=== PATIENT | female | born 1955 | race Caucasian/White ===

== ENCOUNTER 2024-03-16 12:40 | Inpatient (IN) | payer OTHER ==
--- OUTSIDE RECORDS SUMMARY | 2024-03-16 12:42 | XMS REPORT | Continuity of Care Document ---
Author Name Unknown Address [address] [facility] [address] [facility] Address [address] [facility] [address] [place] [address] Care Team Providers Care Explosive Specialist Name Role Phone PCP, PATIENT DOES NOT HAVE A Primary Care Physic abigail Unavailable ABELARDO CURRIE Attending Clinician Unavailable ABELARDO CURRIE Attending Clinician Unavailable Abelardo Currie PA-C Attending Clinician [phone] LEVI MACIEL Attending Clinician UnavailLEVI Milner Attending Clinician UnavailLevi Milner MD Attending Clinician [phone] Levi Maciel MD Attending Clinician [phone] Campaigns, Generic Provider Attending Clinician Unavailable Shweta Pugh Attending Clinician [phone] SHWETA ODELL Attending Clinician Unavaildamion langston Unknown, Attending Attending Clinician Unavailab le Payers Payer Name Policy Type Policy Number Effective Date Expirati on Date Source [facility] [id number] 2023 00:00:00 [facility] [id number] 2023 00:00:00 2024 00:00:00 Problems Condition Name Condition Details Condition Category Status Onset Date Resolution Date Last Treatment Date Treating Clinician Comments Source GERD (gastroeso phageal reflux disease) GERD (gastroeso phageal reflux disease) Disease Active 02-05 00:00: 00 [facility] Seizure disorder Seizure disorder Disease Active 02-05 00:00: 00 [facility] Osteoporos is Osteoporos is Disease Active 02-05 00:00: 00 [facility] Allergies, Adverse Reactions, Alerts Allergy Name Allergy Type Status Severity Reaction(s) Onset Date Inactive Date Treating Clinician Comments Source NO KNOWN ALLERGIE S Drug Class Active [facility] Social History Social Habit Start Date Stop Date Quantity Comments Source [facility] function 2024-02-05 00:00:00 2024-02-05 00:00:00 [facility] Sex assigned at 1955 00:00:00 1955 00:00:00 [facility] Smoking Status Start Date Stop Date Source Tobacco smoking consumption unknown [facility] Medications Ordered Medication Name Filled Medication Name Start Date Stop Date Current Medication? Ordering Clinician Indication Dosage Frequency Signature (SIG) Comments Components Source diclofenac 75 mg EC tablet 02-25 00:00: 00 Yes [id number] 75mg Take 1 tablet by mouth in the morning and 1 tablet in the evening. Take with meals. [facility] acyclovir 400 mg tablet 02-02 00:00: 00 Yes [facility] esomeprazol e 40 mg capsule 8 00:00: 00 Yes [facility] traMADoL 50 mg tablet 01-01 00:00: 00 01-07 04:59 :00 Yes [id number] 50mg Take 1 tablet by mouth every 6 (six) hours for 5 days. Indication s: acute pain [facility] trifluridin e 1 % ophthalmic drops - 00:00: 00 Yes [facility] atropine 1 % ophthalmic drops 12-26 00:00: 00 Yes [facility] famotidine 40 mg tablet 18 00:00: 00 Yes 40mg Take 1 tablet by mouth at bedtime. [facility] Vital Signs Vital Name Observation Time Observation Value Comments Rose acosta Body height 2024-02-26 18:40:00 154.9 cm [facility] Body weight 2024-02-26 18:40:00 74.208 kg [facility] BMI 2024-02-26 18:40:00 30.91 kg/m2 [facility] Body weight 2024-02-05 19:27:00 75.751 kg [facility] 2024-02-05 19:27:00 31.55 kg/m2 [facility] Body height 2024-01-16 14:24:00 154.9 cm [facility] Body weight 2024-01-16 14:24:00 75.433 kg [facility] BMI 2024-01-16 14:24:00 31.42 kg/m2 [facility] Systolic blood pressure 2024-01-01 20:04:00 147 mm[Hg] [facility] Diastolic blood pressure 2024-01-01 20:04:00 95 mm[Hg] [facility] Heart rate 2024-01-01 20:04:00 82 /min [facility] Respiratory rate 2024-01-01 20:04:00 18 /min [facility] Body height 2024-01-01 20:04:00 154.9 cm [facility] Body weight 2024-01-01 20:04:00 77.52 kg [facility] BMI 2024-01-01 20:04:00 32.29 kg/m2 [facility] Oxygen saturation in Arterial blood by Pulse oximetry 2024-01-01 20:04:00 97 /min [facility] Procedures Procedure Date / Time Performed Performing Clinicia n Source XR HAND <3 VW RIGHT 2024-02-26 18:50:14 Abelardo Currie [facility] XR WRIST 3+ VW RIGHT 2024-01-01 20:31:00 Arjun Odell [facility] Encounters Start Date/Time End Date/Time Encounter Type Admission Type Attending Clinicians Care Facility Care Department Encounter ID Source 2024-02-26 13:43:10 2024-02-26 23:59:00 Outpatient R ABELARDO CURRIE [place] [id number] [facility] 2024-02-26 13:43:10 2024-02-26 23:59:00 [facility] 1.2.840.114 350.1.13.10 4.2.7.2.686 [id number] [facility] 2024-02-26 14:30:00 2024-02-26 14:30:00 [facility] 1.2.840.114 350.1.13.10 4.2.7.2.686 [id number] [facility] 2024-02-13 00:00:00 2024-02-17 18:39:19 [facility] 1.2.840.114 350.1.13.10 4.2.7.2.686 [id number] [facility] 2024-02-05 15:04:32 2024-02-05 23:59:00 Hospital Encounter Abelardo Currie [facility] 1.2.840.114 350.1.13.10 4.2.7.2.686 [id number] [facility] 2024-02-05 15:00:00 2024-02-05 15:23:08 [facility] 1.2.840.114 350.1.13.10 4.2.7.2.686 [id number] [facility] 2024-02-05 14:35:22 2024-02-05 15:03:00 Outpatient R ABELARDO CURRIE, [place] [id number] [facility] 2024-02-05 14:35:22 2024-02-05 15:03:00 Hospital Encounter Abelardo Cur[facility] 1.2.840.114 350.1.13.10 4.2.7.2.686 [id number] [facility] 2024-01-29 00:00:00 2024-02-04 09:35:39 Telephone [facility]Levi [facility] 1.2.840.114 350.1.13.10 4.2.7.2.686 [id number] [facility] 2024-01-16 10:02:26 2024-01-16 23:59:00 Hospital Encounter Levi Maciel [facility]ur[facility] 1.2.840.114 350.1.13.10 4.2.7.2.686 [id number] [facility] 2024-01-16 09:45:00 2024-01-16 10:24:06 Outpatient R LEVI MACIEL [place] [id number] [facility] 2024-01-16 09:45:00 2024-01-16 10:24:06 Office Visit Amanda Levi Shi [facility] 1.2.840.114 350.1.13.10 4.2.7.2.686 [id number] [facility] 2024-01-08 16:00:00 2024-01-08 16:00:00 Outpatient R LEVI MACIEL [place] [id number] [facility] 2024-01-08 00:00:00 2024-01-08 11:10:01 Letter (Out) Campaigns, Generic Provider [facility] 1.2.840.114 350.1.13.10 4.2.7.2.686 [id number] [facility] 2024-01-01 15:18:44 2024-01-01 23:59:00 Hospital Encounter Shweta Odell [facility] 1.2.840.114 350.1.13.10 4.2.7.2.686 [id number] [facility] 2024-01-01 00:00:00 2024-01-01 17:48:37 Telephone Shweta Odell [facility] 1.2.840.114 350.1.13.10 4.2.7.2.686 [id number] [facility] 2024-01-01 14:40:00 2024-01-01 16:24:36 Outpatient R SHWETA ODELL [place] [id number] [facility] 2024-01-01 14:40:00 2024-01-01 16:24:36 Urgent Care Shweta Odell Unknown, Attending [facility] 1.2.840.114 350.1.13.10 4.2.7.2.686 [id number] [facility] Results Test Description Test Time Test Comments Results Resul t Comments Source XR HAND <3 VW RIGHT 9 14:31:54 EXAM: XR HAND <3 VW RIGHT HISTORY: Right wrist pain Room 4 COMPARISON: 02/05/2024 FINDINGS: Progressive callus formation is seen about the small finger metacarpal basefracture. Osteoarthritic changes are seen at the radiocarpal,carpomet acarpal and interphalangeal joints. Osteopenia is noted. [facility] XR WRIST 3+ VW RIGHT 2023-12-23 0 21:06:41 ORDERING PHYSICIAN: SHWETA ODELL. HISTORY: right wrist pain- fall TECHNIQUE: 3 views COMPARISON: None. FINDINGS: There is a intra-articular fracture through the base of the fifthmetacarpal. The smaller 11 mm fragment remains in situ, and contains thelateral half of the articular surface. The larger fragment contains themedial half of the articular surface and the remainder of the metacarpalincluding the head, neck, and shaft. It is displaced medially by less than2 mm. No other fracture is present. Joint spaces are otherwise maintained.There is wrist soft tissue swelling. [facility] Notes Date/Time Note Provider Source 2024-02-19 15:23:37 Spke with Patient and relayed the information per PONCHO Anthony. Patient voiced understanding. Carmel Henry RN [facility] 2024-02-19 13:46:14 Called Patient, No answer, Left message to call back. 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 After being immobilized, it is likely her joints will be stiff and having some pain with movement. Can apply ice/heat as tolerated and continue taking ibuprofen PRN. Will reevaluate at next appt. [facility] 2024-02-19 10:44:24 Spoke with patient she reports shooting pain at the pinky through the wrist and also in the middle finger to the wrist. She has been working on making a fits to stretch the area and feels sharp pains in the middle/inside of the wrist. She states that she messages it and feel sharp pain on the top of her hand near the injury. States that is not a sharp pain. Rates the pain 6/10. Please review and advise. Next office visit 02/26/24 Carmel Henry RN [facility] 2024-02-19 08:31:29 Called Patient, No answer, Left message to call back. Carmel Henry RN [facility] 2024-02-17 18:39:27 Pt can start coming out of brace and moving her hand/wrist. Should still avoid lifting/twisting/pulling movements. [facility] 2024-02-13 15:42:00 Patient would like to speak to clinical staff regarding her fracture she is wanting to know if it is safe to to take off the brace and if she is able to make fist or be able to maneuver her hand. She is also wanting to know if she needs to keep the brace on at all times or if is okay to take it off. Patient still has pain and swelling. Sundeep Gonzales [facility] 2024-02-04 09:34:49 Called patient but no answer so LVM letting her know she needs to schedule a follow up appointment. Diane Delgado 02/04/2024 9:35 AM Diane Delgado [facility] 2024-02-04 08:10:37 Pt needs to be seen in clinic for repeat imaging and evaluation. T PA-PHYSICIAN MANAGER BABY MIDLEVEL PROVIDER [facility] 2024-01-30 11:33:21 Routing encounter to provider to review and address. At her [place] she was told to RTC in 3 weeks. Diane Delgado 01/30/2024 11:33 AM [facility] 2024-01-29 18:01:43 Delfina Mendez is a 68 year old female Pt calling She hurt her hand 5 wks. Ago She is wondering is it normal to have so much pain. Pain has shooting from broken finger through wrist. Fingers are still swollen and hurt very bad. Pt can't bend finger into a fist Please call pt T [facility] 2024-01-01 17:48:00 Spoke with patient that she had a fracture and she states that she will come tomorrow 01/02/2024 to splinted. T [facility] 2024-01-01 17:05:05 Delfina Mendez is a 68 year old female Pt is calling requesting to go over x-ray results from her urgent care appt today, 01/01/24. Please contact pt at [phone]. T [facility] 2024-01-01 14:40:00 Addended by: SARAH ERWIN on: 01/02/2024 09:59 AM Modules accepted: Orders T [facility]
--- NOTE | 2024-03-16 14:01 | RAD REPORT ---
EXAM: CT brain without contrast HISTORY: Syncope, trauma, pain [facility] Bed Name: 6 COMPARISON: None TECHNIQUE: Multiple contiguous axial images were obtained and a CT of the brain without contrast. Sag ittal and coronal reformats were performed. FINDINGS:No evidence of hydrocephalus, intracranial hemorrhage, or extra-axial fluid collection. Mild brain atrophy with mild periventricular and deep white matter chronic microvascular ischemic ch anges present. No evidence of midline shift or areas of brain edema. The calvarium is intact. The visualized paranasal sinuses and mastoid air cells are essentially clear . IMPRESSION: No evidence of acute intracranial abnormality. EXAM: CT of the cervical spine without contrast HISTORY: Neck demi, injury [facility] Bed Name: 6 COMPARISON: None TECHNIQUE: Multiple contiguous axial images were obtained in a CT of the cervical spine without contr ast. Sagittal and coronal reformats were performed. FINDINGS: The vertebral bodies demonstrate normal height. No evidence of acute fracture or subluxatio n.. Mild mid and lower cervical degenerative changes are present. Mild degenerative anterolisthesis of C3 on 4. No prevertebral soft tissue swelling is seen. The posterior facets are well aligned. Normal alignment of the skull base with the cervical spine is seen. The lung apices are unremarkable. IMPRESSION: No evidence of acute osseous abnormality of the cervical spine.
[2024-03-16 14:07] LABS: Absolute Eosinophils 0.2 K/uL (0-0.5); Absolute Lymphocytes (CBC) 0.8 K/uL (0.7-4.9); Absolute Monocytes 0.7 K/uL (0.1-1.3); Absolute Neutrophil 7.1 K/uL (1.8-8.0); Basophils % 0.2 % (0-1.3); Eosinophils % 2.1 % (0-4.4); Hemoglobin 12.9 g/dL (12.0-15.0); Lymphocytes % 8.5 % (15.3-44.8); MCH 29.2 pg (27.0-35.0); MCHC 32.3 g/dL (32.0-36.0); MCV 90.5 fL (80-100); MPV 7.9 fL (7.6-11.3); Neutrophils % 81.2 % (41.7-73.7); Platelets 259 thou/uL (152-406); RBC Red Blood Cell Count 4.42 M/uL (3.86-4.86); Red Cell Distribution Width 14.7 % (12.1-15.2)
[2024-03-16 14:25] LABS: ALT/SGPT 28 U/L (13-56); AST/SGOT 16 U/L (15-37); Albumin 3.2 g/dL (3.4-5.0); Alkaline Phosphatase 65 U/L (45-117); Anion Gap 14.6 mEq/L (5.0-15.0); BUN Blood Urea Nitrogen 20 mg/dL (7-18); Bicarbonate 21 mEq/L (21-32); Bilirubin Direct < 0.2 mg/dL (0-0.2); Bilirubin Indirect, Calculated 0.2 mg/dL (0.2-0.8); Bilirubin Total 0.4 mg/dL (0.2-1.0); Globulin 3.2 g/dL (2.3-3.5); Glomerular Filtration Rate 24 ml/min (=/>90); Glucose Level 114 mg/dL (74-106); Potassium 3.6 mEq/L (3.5-5.1); Protein, Total 6.4 g/dL (6.4-8.2); Sodium Level 140 mEq/L (136-145); Troponin High Sensitivity 3.4 pg/mL (<58.9)
[2024-03-16] MEDS ORDERED: NA CHLORIDE 0.9% 2,000 ML ONE (14:51)
--- NOTE | 2024-03-16 15:45 | EDPHYS ---
Physician Documentation [facility] Name: Delfina Mendez Age: 68 yrs Sex: Female : 1955 Arrival Date: 03/16/2024 Time: 12:40 Bed 6 Private MD: ED Physician Dwight Choudhury HPI: 03/16 13:24 This 68 yrs old Female presents to ER via EMS with complaints of syncope/possible sb4 seizure. 13:24 Patient states that she was at the [employer] store in the checkout line and started to sb4 feel poorly. She states the last thing she remembers is asking the staff if she looked pale in which they told her yes. Bystanders report that she then fell to the ground and hit her head and started "shaking "briefly. EMS arrived and she had returned to baseline, c-collar was applied due to some neck pain. 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 She is not currently on any medication for this. Additionally, she does report a history of vertigo and migraines. Historical: - Allergies: 12:47 No Known Allergies; bp - Immunization history:: Adult Immunizations up to date. - Infectious Disease History:: Denies. - Social history:: Smoking status: Patient denies any tobacco usage or history of. ROS: 13:24 Constitutional: Negative for fever, chills, and weight loss, sb4 13:24 Neck: Positive for pain with movement, pain at rest, 13:24 Neuro: Positive for seizure activity, syncope, 13:24 All other systems are negative, Exam: 13:27 Constitutional: This is a well developed, well nourished patient who is awake, alert, sb4 and in no acute distress. Head/Face: Normocephalic, atraumatic. Eyes: Extra-ocular motions intact. Periorbital areas with no swelling, redness, or edema. ENT: Mucous membranes moist. Cardiovascular: Regular rate and rhythm with a normal S1 and S2. Respiratory: Lungs have equal breath sounds bilaterally, clear to auscultation and percussion. No rales, rhonchi or wheezes noted. No increased work of breathing, no retractions or nasal flaring. Abdomen/GI: Soft, non-tender, no distension. Skin: Warm, dry with normal turgor. Normal color with no rashes, no lesions, and no evidence of cellulitis. MS/ Extremity: Pulses equal, no cyanosis. Neurovascular intact. Full, normal range of motion. Neuro: Awake and alert, GCS 15, oriented to person, place, time, and situation. Motor strength 5/5 in all extremities. Sensory grossly intact. 13:27 Neck: C-spine: C-collar placed CONVERSION MAN, Vital Signs: 12:46 BP 106 / 73; Pulse 76; Resp 16; Temp 98; Pulse Ox 95% ; bp 14:00 BP 120 / 99; Pulse 62; Resp 16; Pulse Ox 97% ; bp 15:00 BP 123 / 98; Pulse 57; Resp 15; Pulse Ox 96% ; bp 16:57 BP 132 / 75; Pulse 59; Resp 16; Pulse Ox 98% ; bp 17:16 BP 158 / 84; Pulse 58; Resp 16; Pulse Ox 99% on R/A; cm10 MDM: 12:45 Patient medically screened. [facility] 15:44 ECG was reviewed by the Attending Physician. Data reviewed: vital signs, nurses notes, [facility] EMS record, lab test result(s), EKG, radiologic studies, and as a result, I will admit patient. Consideration of Admission/Observation Patient was admitted/placed on observation. Counseling: I had a detailed discussion with the patient and/or guardian regarding the historical points, exam findings, and any diagnostic results supporting the discharge/admit diagnosis, lab results, radiology results, the need for further work-up and treatment in the hospital. 03/16 12:46 Order name: Basic Metabolic Panel; Complete Time: 14: [facility] 03/16 12:46 Order name: CBC with Diff; Complete Time: 14:08 [facility] 03/16 12:46 Order name: Hepatic Function; Complete Time: 14:26 [facility] 03/16 12:46 Order name: Magnesium; Complete Time: 14: [facility] 03/16 12:46 Order name: Troponin High Sensitivity; Complete Time: 14: [facility] 03/16 15:45 Order name: UAM sb 03/16 16:45 Order name: T4 Free [facility] 03/16 16:45 Order name: Thyroid Stimulating Hormone [facility] 03/16 16:45 Order name: Basic Metabolic Panel [facility] 03/16 16:45 Order name: Basic Metabolic Panel [facility] 03/16 16:45 Order name: CBC with Automated Diff [facility] 03/16 16:45 Order name: CBC with Automated Diff [facility] 03/16 16:45 Order name: Lipid Profile [facility] 03/16 16:45 Order name: Lipid Profile [facility] 03/16 16:45 Order name: Magnesium [facility] 03/16 16:45 Order name: Magnesium [facility] 03/16 16:45 Order name: Phosphorus [facility] 03/16 16:45 Order name: Phosphorus [facility] 03/16 16:45 Order name: Troponin High Sensitivity [facility] 03/16 16:45 Order name: Troponin High Sensitivity [facility] 03/16 16:45 Order name: Troponin High Sensitivity [facility] 03/16 12:46 Order name: CT Head C Spine; Complete Time: 14:02 sb4 03/16 16:45 Order name: EEG Request [facility] 03/16 16:45 Order name: EEG Request [facility] 03/16 16:45 Order name: CONS Physician Consult [facility] 03/16 12:46 Order name: Cardiac monitoring; Complete Time: 12:58 sb4 03/16 12:46 Order name: EKG - Nurse/Tech; Complete Time: 12:58 sb4 03/16 12:46 Order name: IV Saline Lock; Complete Time: 12:58 sb4 03/16 12:46 Order name: Labs collected and sent; Complete Time: 12:58 sb4 03/16 12:46 Order name: O2 Per Protocol; Complete Time: 12:48 sb4 03/16 12:46 Order name: O2 Sat Monitoring; Complete Time: 12:48 sb4 03/16 14:02 Order name: Misc. Order: remove c collar; Complete Time: 14:02 sb4 EC:12 Rate is 71 beats/min. Rhythm is regular, Normal Sinus Rhythm. Left axis deviation sb4 noted. OR interval is normal at 162 msec. QRS interval is normal at 72 msec. QT interval is normal at 440 msec. No Q waves. T waves are Normal. No ST changes noted. Clinical impression: No evidence of ischemia. Interpreted by me. Reviewed by me. Administered Medications: 14:45 Drug: NS 0.9% IV 1000 ml IV at 1 bolus Per protocol; 1000 mL bolus Route: IV; Rate: 1 bp bolus; Site: left forearm; 16:58 Follow up: IV Status: Completed infusion; IV Intake: 1000ml bp Disposition Summary: 03/16/24 15:45 Hospitalization Ordered Notes: Hospitalization Status: Observation sb4 Provider: Balta Sanford4 Location: Telemetry/MedSurg (observation) sb4 Condition: Fair sb4 Problem: new sb4 Symptoms: are unchanged sb4 Bed/Room Type: Standard sb4 Room Assignment: 215(03/16/24 16:55) bd Diagnosis - Syncope sb4 - Acute kidney failure, unspecified sb4 Discharge Instructions: - Discharge Summary Sheet sb4 - Seizure, Adult, Hgtw-[id number]-Ifch sb4 - Syncope, [id number]-[id number] sb4 Forms: - Medication Reconciliation Form sb4 - SBAR form sb4 - Leadership Thank You Letter sb4 Addendum: 03/19/2024 11:12 I was immediately available for consultation during this patient's visit. I did not e c2 personally see the patient or discuss the patient with the BENI. . Signatures: Dispatcher [employer] EDKS Cate Kaye Brian, TREVON RN Maria Eugenia Prado PA-C PA-C sb4 Dwight Choudhury MD MD ec2 Corrections: (The following items were deleted from the chart) 03/16 13:03 12:47 Head Brain Wo Cont+CT.RAD.BRZ ordered. EDKS EDKS 16:55 15:45 sb4 bd
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
--- NOTE | 2024-03-16 15:51 | P.HP ---
Certification for Inpatient Patient admitted to: Observation With expected LOS: <2 Midnights Practitioner: I am a practitioner with admitting privileges, knowledge of patient current condition, hospital course, and medical plan of care. Services: Services provided to patient in accordance with Admission requirements found in Title 42 Section 412.3 of the Code of Federal Regulations Patient History Date of Service: 03/16/24 Reason for admission: CVA vs seizure History of Present Illness: Delfina Mendez is a 68 year old female with Pmhx of heart palpitations who presents to the ED with chief complaint of seizure like activity today while at the [employer] store. She reports having these episodes twice a year with the most recent one in December (2023) and previous to that in May (2022). She states she feels an aura of increased ear pressure, feeling like she is going down into a tunnel and then becomes dizzy before falling. She states today's episode was the first one witnessed, a nurse in the line at the [employer] store placed her on her side and had reported to her foam coming from her mouth and minimal shaking. Otherwise she is usually found on the floor by a family member. She reports seeing Dr. Ferrara for suspected absence seizure's but is not on medications at this time. On evaluation, she is alert and oriented, remembers some of the event today, can recall her previous episodes, NIHSS 0. Of note, she is adopted and is not familiar with her paternal family's history of seizures. Initial vitals BP 106 / 73, Pulse 76, Resp 16, Temp 98, Pulse Ox 95% Laboratory evaluation with BUN/creatinine 20/2.21, GFR 24, serum glucose 114 CT head "FINDINGS:No evidence of hydrocephalus, intracranial hemorrhage, or extra-axial fluid collection. Mild brain atrophy with mild periventricular and deep white matter chronic microvascular ischemic changes present. No evidence of midline shift or areas of brain edema. The calvarium is intact. The visualized paranasal sinuses and mastoid air cells are essentially clear. IMPRESSION: No evidence of acute intracranial abnormality." CT cervical spine "FINDINGS: The vertebral bodies demonstrate normal height. No evidence of acute fracture or subluxation.. Mild mid and lower cervical degenerative changes are present. Mild degenerative anterolisthesis." Delfina will be admitted to hospitalist service for further evaluation and treatment. Dr. Ferrara consulted. - Past Medical/Surgical History -: Palpitations Past Surgical History: Patient denies surgical history - Social History Smoking Status: Never smoker Alcohol use: No CD- Drugs: No Review of Systems Neurological: Other (dizziness) Physical Examination - Physical Exam General: Alert, In no apparent distress, Oriented x3 HEENT: Atraumatic, Normocephalic, PERRLA Neck: Supple, 2+ carotid pulse no bruit, JVD not distended Respiratory: Clear to auscultation bilaterally, Normal air movement Cardiovascular: No edema, Normal pulses, Regular rate/rhythm, Normal S1 S2 Capillary refill: <2 Seconds Gastrointestinal: Normal bowel sounds, Hypoactive, Soft and benign, No tenderness Musculoskeletal: No clubbing Integumentary: No rashes Neurological: Normal speech, Normal tone, Other (NIHSS 0) - Studies Laboratory Data (last 24 hrs) 03/16/24 03/16/24 12:58 12:58 WBC 8.80 Hgb 12.9 Hct 40.0 Plt Count 259 Sodium 140 Potassium 3.6 BUN 20 H Creatinine 2.21 H Glucose 114 H Magnesium 2.0 Total Bilirubin 0.4 AST 16 ALT 28 Alkaline Phosphatase 65 Assessment and Plan - Plan Assessment and plan Acute CVA vs seizure -CT head "FINDINGS:No evidence of hydrocephalus, intracranial hemorrhage, or extra-axial fluid collection. Mild brain atrophy with mild periventricular and deep white matter chronic microvascular ischemic changes present. No evidence of midline shift or areas of brain edema. The calvarium is intact. The visualized paranasal sinuses and mastoid air cells are essentially clear. IMPRESSION: No evidence of acute intracranial abnormality." -CT cervical spine "FINDINGS: The vertebral bodies demonstrate normal height. No evidence of acute fracture or subluxation.. Mild mid and lower cervical degenerative changes are present. Mild degenerative anterolisthesis." -Dr. Ferrara consulted -EEG in the a.m. -Continuous telemetry -No neurological deficits -MRI brain performed on Saturday (03/11)- reports "Moderate signal within predominantly deep white matter bilaterally probably ischemic changes secondary to small vessel disease. A demyelinating process is considered less likely. Follow-up MRI of the brain in 3 months may be helpful to assess stability." -Lipid panel, TSH/T4 -Aspirin, statin, folic acid daily -Seizure precautions AMAYA -BUN/creatinine 20/2.21, GFR 24 -Gentle IV fluids DVT PPx SCD Full code LOS 24 hour OBS Discharge Plan: Home Plan to discharge in: 24 Hours - Advance Directives Does patient have a Living Will: No Does patient have a Durable POA for Healthcare: No
[2024-03-16] MEDS ORDERED: ACETAMINOPHEN 325 MG TABLET PO PRN (16:36)
[2024-03-16 18:44] LABS: Specific Gravity 1.006 (1.005-1.030); Sqamous Epithelial <5 /HPF (None Seen); Urine Bacteria None Seen /HPF (<20); Urine Bilirubin NEGATIVE (Negative); Urine Blood Negative (Negative); Urine Clarity Clear (Clear); Urine Color Colorless (Yellow); Urine Culture Reflex Order NOT NEEDED; Urine Glucose NEGATIVE (Negative); Urine Ketones NEGATIVE (Negative); Urine Micro Reflex YN NO BILL MICROSCOPIC; Urine Nitrite NEGATIVE (Negative); Urine Protein NEGATIVE (Negative); Urine RBC <5 /HPF (None Seen); Urine Urobilinogen Normal (Normal); Urine WBC <5 /HPF (<5); Urine pH 6.5 (5.0-7.0)
[2024-03-16] MEDS: levETIRAcetam 1,000 MG in NA CHLORIDE 0.9% 100 ML IV ONE ×2 (19:05→21:13)
[2024-03-16 19:07] VITALS: O2SAT 99
[2024-03-16 20:27] LABS: Thyroid Stimulating Hormone 1.97 uIU/mL (0.358-3.740)
[2024-03-16 20:55] VITALS: BMI 31.5
[2024-03-16] MEDS: ATORVASTATIN 40 MG TAB PO SCH (21:21)
[2024-03-16] MEDS: NA CHLORIDE 0.9% 1,000 ML IV SCH (21:26)
[2024-03-17 04:41] LABS: Absolute Eosinophils 0.2 K/uL (0-0.5); Absolute Lymphocytes (CBC) 1.2 K/uL (0.7-4.9); Absolute Monocytes 0.5 K/uL (0.1-1.3); Absolute Neutrophil 3.4 K/uL (1.8-8.0); Basophils % 0.6 % (0-1.3); Eosinophils % 3.3 % (0-4.4); Hematocrit 34.8 % (36.0-45.0); Hemoglobin 11.5 g/dL (12.0-15.0); Lymphocytes % 22.6 % (15.3-44.8); MCH 29.8 pg (27.0-35.0); MCHC 32.9 g/dL (32.0-36.0); MCV 90.4 fL (80-100); MPV 7.7 fL (7.6-11.3); Monocytes % 9.6 % (3.3-12.3); Neutrophils % 63.9 % (41.7-73.7); Platelets 220 thou/uL (152-406); RBC Red Blood Cell Count 3.85 M/uL (3.86-4.86); Red Cell Distribution Width 14.4 % (12.1-15.2)
[2024-03-17 04:53] LABS: Anion Gap 8.6 mEq/L (5.0-15.0); Magnesium 2.1 mg/dL (1.6-2.4); Phosphorus 4.8 mg/dL (2.5-4.9); Potassium 3.6 mEq/L (3.5-5.1)
[2024-03-17] MEDS: ASPIRIN EC 81 MG TAB PO SCH (09:00)
[2024-03-17] MEDS: FOLIC ACID 1 MG TABLET PO SCH (09:00)
[2024-03-17] MEDS: levETIRAcetam 500 MG TAB PO SCH (09:02)
[2024-03-17] MEDS: ASPIRIN 325 MG TAB PO ONE (09:17)
[2024-03-17] MEDS: ACETAMINOPHEN 500 MG TAB PO ONE (09:17)
--- NOTE | 2024-03-17 10:27 | EKG ---
Test Date: 2024-03-16 Test Time: 12:59:20 Case Manager: LML MEASUREMENT RESULTS: Intervals: Rate: 71 AZ: 162 QRSD: 72 QT: 440 QTc: 478 Circle: P: 49 AZ: 162 QRS: -44 T: 47 INTERPRETIVE STATEMENTS: Normal sinus rhythm Left axis deviation Abnormal ECG No previous ECG available for comparison Electronically Signed On 03-17-24 10:24:29 CDT by Riky Mari
[2024-03-17] MEDS: HYDROCODONE/APAP 7.5/325 MG TAB PO ONE (12:09)
--- NOTE | 2024-03-17 17:36 | P.PN ---
Date of Service: 03/17/24 Subjective: No further episodes of seizure-like activity noted Patient is complaining of headache similar to previous migraines No other acute events overnight ROS: 10 point ROS as noted above, otherwise negative Physical exam GEN: Alert, oriented, NAD HEENT: Normal conjunctiva, sclera anicteric CV: Regular rate and rhythm, no edema Pulm: Nonlabored respirations on room air ABD: Soft, nontender, nondistended MSK: No joint tenderness Integumentary: No rashes Neuro: Normal speech, normal affect Vitals reviewed Assessment and plan Acute CVA vs suspected seizure -CT head "FINDINGS:No evidence of hydrocephalus, intracranial hemorrhage, or extra-axial fluid collection. Mild brain atrophy with mild periventricular and deep white matter chronic microvascular ischemic changes present. No evidence of midline shift or areas of brain edema. The calvarium is intact. The visualized paranasal sinuses and mastoid air cells are essentially clear. IMPRESSION: No evidence of acute intracranial abnormality." -CT cervical spine "FINDINGS: The vertebral bodies demonstrate normal height. No evidence of acute fracture or subluxation.. Mild mid and lower cervical degenerative changes are present. Mild degenerative anterolisthesis." -Dr. Ferrara consulted -EEG completed pending interpretation -Continuous telemetry -No neurological deficits -MRI brain performed on Saturday (03/11)- reports "Moderate signal within predominantly deep white matter bilaterally probably ischemic changes secondary to small vessel disease. A demyelinating process is considered less likely. Follow-up MRI of the brain in 3 months may be helpful to assess stability." -Continue Dr.Barnwell Darinel to provide patient with abortive medication for her migraine headache AMAYA -Improving with IVF -BUN/creatinine initially 20/2.21, GFR 24 DVT PPx SCD Full code Discharge Plan: Home Plan to discharge in: 24 Hours Time Spent Managing Pts Care (In Minutes): 35
[2024-03-17] MEDS: HYDROCODONE/APAP 7.5/325 MG TAB PO PRN (20:02)
[2024-03-17] MEDS: PREGABALIN 50 MG CAP PO SCH (21:38)
[2024-03-18 07:32] LABS: Anion Gap 6.6 mEq/L (5.0-15.0); Potassium 3.6 mEq/L (3.5-5.1)
[2024-03-18 14:00] VITALS: BP 140/78; TEMP 97.8
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
--- NOTE | 2024-03-19 10:45 | EEG ---
CHART: [id number] TEST ID#: [id number] DATE OF STUDY: 03-16-2024 THE EEG WAS RECORDED PORTABLE IN THE PATIENT'S ROOM ON A 17 CHANNEL MACHINE. ELECTRODES WERE APPLIED IN THE USUAL MANNER USING THE INTERNATIONAL 10-20 SYSTEM. THE WAKING BACKGROUND RHYTHM IN THIS RECORD CONSISTS OF FAIRLY WELL DEVELOPED AND FAIRLY WELL ORGANIZED WAVES OF 8 HZ., MAXIMAL IN THE POSTERIOR HEAD REGIONS WHICH ATTENUATE NORMALLY WITH EYE OPENING. LOW-VOLTAGE 18-22 HZ ACTIVITY IS EXPRESSED IN THE FRONTAL AND CENTRAL REGIONS. THERE ARE NO FOCAL OR LATERALIZING FEATURES. NO EPILEPTIFORM ACTIVITY APPEARS. SLEEP OCCURRED NATURALLY. IN ADDITION NORMAL SLEEP PATTERNS ARE PRESENT. HYPERVENTILATION WAS NOT PERFORMED. PHOTIC STIMULATION PRODUCED POOR DRIVING BILATERALLY. IMPRESSION: NORMAL EEG FOR THE AGE OF THE PATIENT IN [place], DROWSINESS AND SLEEP.
== END 2024-03-18 17:11 | disposition home or self-care (01) | DRG 101 ==
LOC: ER 12:40 → ERHOLD 16:36 → 2ND 17:16 → OBSVTOIN 03-17 19:16
PROVIDERS: ADMIT Internal Medicine; ATTEND Hospitalist
DX: R56.9 Unspecified convulsions (principal); N17.9 Acute kidney failure, unspecified; G43.909 Migraine, unspecified, not intractable, without status migrainosus; Z79.899 Other long term (current) drug therapy
CPT/HCPCS: 36415; 80048; 80061; 80076; 81001; 83735; 84100; 84439; 84443; 84484; 85025; 93005; 95819; 96360; 96361; 99285; G0378; J1953; J7030